=== PATIENT | male | born 1995 | race Caucasian/White ===

== ENCOUNTER 2018-05-18 17:53 | Emergency (ER) | payer OTHER ==
[2018-05-18] MEDS ORDERED: SODIUM CHLORIDE 0.9% 1,000 ML IV STA (20:24)
[2018-05-18 20:42] LABS: BASOPHILS # (AUTO) 0.1 10^3/uL (0.0-0.1); EOSINOPHILS # (AUTO) 0.3 10^3/uL (0.0-0.7); EOSINOPHILS % (AUTO) 5.6 %; HGB - HEMOGLOBIN 14.8 g/dL (14.0-18.0); LYMPHOCYTES % (AUTO) 36.2 %; MEAN CORPUSCULAR HEMOGLOBIN 29.5 pg (27.0-31.0); MEAN CORPUSCULAR HGB CONC 34.4 g/dL (32.0-36.0); MEAN CORPUSCULAR VOLUME 85.8 fL (80.0-94.0); MEAN PLATELET VOLUME 8.1 fL (7.4-11.4); MONOCYTES # (AUTO) 0.7 10^3/uL (0.0-1.0); MONOCYTES % (AUTO) 11.7 %; NEUTROPHILS # (AUTO) 2.6 10^3/uL (1.5-6.6); NEUTROPHILS % (AUTO) 45.5 %; PLT - PLATELET COUNT 189 10^3/uL (130-450); RED BLOOD COUNT 5.02 10^6/uL (4.70-6.10); RED CELL DISTRIBUTION WIDTH 12.2 % (12.0-15.0); WHITE BLOOD COUNT 5.6 x10^3/uL (4.8-10.8)
--- NOTE | 2018-05-18 20:42 | ED Physician Documentation ---
History of Present Illness - Stated complaint Stated Complaint: DIZZINESS - Chief complaint Chief Complaint: Neuro - History obtained from History obtained from: Patient, Family - History of Present Illness Timing: How many days ago (several) Pain level max: 0 Pain level now: 0 - Additonal information Additional information: 22-year-old male presents to the emergency department with diarrhea for the past 3-4 days. Today he states that he has been feeling dizzy intermittently, describes this as feeling lightheaded. Last for a few seconds at a time but lasted longer this evening after dinner. States he feels all this way when he becomes dehydrated. No significant headaches. No focal neurological deficits. Occasionally see spots in his vision. Better lying down and worse with standing. Does not feel like the room is spinning. Review of Systems Ten Systems: 10 systems reviewed and negative Constitutional: denies: Fever, Chills Ears: denies: Ear pain Nose: denies: Rhinorrhea / runny nose, Congestion Cardiac: denies: Chest pain / pressure Respiratory: denies: Dyspnea GI: reports: Diarrhea (3-4 times per day. No recent travel. No antibiotics). denies: Abdominal Pain, Nausea, Vomiting Skin: denies: Rash Musculoskeletal: denies: Neck pain, Back pain Neurologic: denies: Headache PD PAST MEDICAL HISTORY - Past Medical History Past Medical History: Yes Neuro: Migraines Other Past Medical History: Concussion - Past Surgical History Past Surgical History: Yes - Present Medications Home Medications: Ambulatory Orders Medication Instructions Recorded Confirmed No Known Home Medications 05/18/18 05/18/18 - Allergies Allergies/Adverse Reactions: Allergies Allergy/AdvReac Type Severity Reaction Status Date / Time No Known Drug Allergies Allergy Verified 05/18/18 20:32 - Social History Does the pt smoke?: No Smoking Status: Never smoker Does the pt drink ETOH?: Yes ETOH Use: Wine, Beer, Liquor Does the pt have substance abuse?: No - Immunizations Immunizations are current?: Yes - POLST Patient has POLST: No PD ED PE NORMAL - Vitals Vital signs reviewed: Yes - General General: Alert and oriented X 3, No acute distress, Well developed/nourished - HEENT HEENT: PERRL, Ears normal, Pharynx benign, Other (Dry lips and tongue) - Neck Neck: Supple, no meningeal sign - Cardiac Cardiac: RRR, Strong equal pulses - Respiratory Respiratory: No respiratory distress, Clear bilaterally - Abdomen Abdomen: Soft, Non tender, Non distended - Derm Derm: Warm and dry, No rash - Extremities Extremities: No edema - Neuro Neuro: Alert and oriented X 3 - Psych Psych: Normal mood, Normal affect Results - Vitals Vitals: Vital Signs - 24 hr 05/18/18 05/18/18 05/18/18 18:09 19:51 20:22 Temperature Heart Rate 92 76 83 Respiratory 16 16 14 Rate Blood Pressure 127/68 133/73 H 117/72 O2 Saturation 97 100 100 05/18/18 05/18/18 05/18/18 20:46 21:18 21:41 Temperature 36.3 C L 36.7 C Heart Rate 91 83 Respiratory 20 21 Rate Blood Pressure 116/74 128/61 O2 Saturation 99 97 Oxygen O2 Source Room air - Labs Labs: Laboratory Tests 05/18/18 05/18/18 05/18/18 20:30 20:30 21:22 WBC 5.6 RBC 5.02 Hgb 14.8 Hct 43.1 MCV 85.8 MCH 29.5 MCHC 34.4 RDW 12.2 Plt Count 189 MPV 8.1 Neut # (Auto) 2.6 Lymph # (Auto) 2.0 Bibb # (Auto) 0.7 Eos # (Auto) 0.3 Baso # (Auto) 0.1 Absolute Nucleated RBC 0.00 Nucleated RBC % 0.1 Sodium 139 Potassium 3.7 Chloride 103 Carbon Dioxide 26 Anion Gap 10.0 BUN 18 Creatinine 0.9 Estimated GFR (MDRD) 106 Glucose 100 Calcium 9.4 Total Bilirubin 0.5 AST 24 ALT 37 Alkaline Phosphatase 52 Total Protein 7.7 Albumin 4.6 Globulin 3.1 Albumin/Globulin Ratio 1.5 Lipase 39 Urine Color YELLOW Urine Clarity CLEAR Urine pH 6.0 Ur Specific [place] 1.010 Urine Protein NEGATIVE Urine Glucose (UA) NEGATIVE Urine Ketones NEGATIVE Urine Occult Blood NEGATIVE Urine Nitrite NEGATIVE Urine Bilirubin NEGATIVE Urine Urobilinogen 0.2 (NORMAL) Ur Leukocyte Esterase NEGATIVE Ur Microscopic Review NOT INDICATED Urine Culture Comments NOT INDICATED PD MEDICAL DECISION MAKING - ED course Complexity details: reviewed results, re-evaluated patient, considered differential, d/w patient, d/w family ED course: 22-year-old male with what appears to be dehydration. Normal cerebellar test. Normal neuro exam. No arrhythmias on telemetry monitoring. Tolerating p.o. without difficulty. Ambulating without difficulty. Normal gait. We will have him follow-up with his doctor for further care. Patient and family counseled regarding signs and symptoms for which I believe and urgent re-evaluation would be necessary. Patient with good understanding of and agreement to plan and is comfortable going home at this time This document was made in part using voice recognition software. While efforts are made to proofread this document, sound alike and grammatical errors may occur. Departure - Departure Disposition: 01 Home, Self Care Clinical Impression: Dehydration Condition: Good Instructions: ED Dehydration Follow-Up: your,doctor in 1 week [Other] Comments: Drink plenty of fluids. Return if you worsen. Follow-up with your doctor for further care. Discharge Date/Time: 05/18/18 21:44
[2018-05-18 20:54] LABS: ALBUMIN 4.6 g/dL (3.2-5.5); ALBUMIN/GLOBULIN RATIO 1.5 (1.0-2.2); BILIRUBIN,TOTAL 0.5 mg/dL (0.2-1.0); CALCIUM 9.4 mg/dL (8.5-10.3); CREATININE 0.9 mg/dL (0.6-1.2); TOTAL PROTEIN 7.7 g/dL (6.7-8.2)
[2018-05-18 21:33] LABS: BILIRUBIN,URINE NEGATIVE (NEGATIVE); GLUCOSE, URINE (UA) NEGATIVE (NEGATIVE); KETONES,URINE (UA) NEGATIVE (NEGATIVE); LEUKOCYTE ESTERASE, URINE NEGATIVE (NEGATIVE); NITRITE,URINE NEGATIVE (NEGATIVE); OCCULT BLOOD,URINE NEGATIVE (NEGATIVE); PROTEIN,URINE NEGATIVE (NEGATIVE); UROBILINOGEN,URINE 0.2 (NORMAL) E.U./dL (NORMAL)
[2018-05-18 21:34] LABS: CLARITY,URINE CLEAR (CLEAR)
[2018-05-18 21:42] VITALS: BP 128/61
== END 2018-05-18 21:44 | disposition home or self-care (01) ==
LOC: ED 17:53
DX: E86.0 Dehydration (principal)
CPT/HCPCS: 36415; 80053; 81001; 81003; 83690; 85025; 87086; 93005; 96360; 99284